=== PATIENT | male | born 1945 ===

== ENCOUNTER 2018-02-22 10:39 | Observation (INO) | payer MEDICARE ==
[~2018-02-22] VITALS: Ht 167.6 cm; Wt 1.0 kg
[2018-02-22] MEDS ORDERED: SODIUM CHLORIDE 0.9% 1,000 ML IV SCH (12:53)
[2018-02-22] MEDS ORDERED: FENTANYL PF 250 MCG/5ML ONE (13:05)
[2018-02-22] MEDS ORDERED: ATOR40TA PO (13:17)
[2018-02-22] MEDS ORDERED: LISI-167 PO (13:17)
[2018-02-22] MEDS ORDERED: APIX5TAB PO (13:17)
[2018-02-22 13:22] LABS: BASOPHILS # (AUTO) 0.03 x10^3/uL (0-0.1); BASOPHILS % (AUTO) 0 % (0-1); EOSINOPHILS # (AUTO) 0.11 x10^3/uL (0-0.4); EOSINOPHILS % (AUTO) 1 % (1-7); LYMPHOCYTES # (AUTO) 2.58 x10^3/uL (1-3.4); LYMPHOCYTES % (AUTO) 31 % (22-44); MD NO; MEAN CORPUSCULAR HEMOGLOBIN 30.7 pg (27.5-34.5); MEAN CORPUSCULAR HGB CONC 33.6 g/dL (33.2-36.2); MEAN CORPUSCULAR VOLUME 91.3 fL (81-97); MEAN PLATELET VOLUME 8.3 fL (7.4-10.4); MONOCYTES # (AUTO) 0.63 x10^3/uL (0.2-0.8); MONOCYTES % (AUTO) 8 % (2-9); NEUTROPHILS # (AUTO) 4.95 x10^3/uL (1.8-6.8); NEUTROPHILS % (AUTO) 60 % (42-75); PLATELET COUNT 234 x10^3/uL (130-400); RED BLOOD COUNT 4.72 x10^6/uL (4.38-5.82); RED CELL DISTRIBUTION WIDTH 13.8 % (9.4-14.8)
[2018-02-22 13:31] LABS: ANION GAP 8 mmol/L (5-15); CALCIUM 8.9 mg/dL (8.5-10.1); CHLORIDE 109 mmol/L (98-107); CREATININE 0.77 mg/dL (0.7-1.3); INTERNATIONAL NORMALIZED RATIO 1.09 (0.93-1.1); PROTHROMBIN TIME 11.5 Seconds (9.6-11.5)
[2018-02-22] MEDS ORDERED: ROCURONIUM 10 MG/ML,10ML ONE (13:42)
[2018-02-22] MEDS ORDERED: ISOPROTERENOL 0.2MG/ML, 5ML ONE (15:28)
[2018-02-22] MEDS ORDERED: DEXAMETHASONE 4 MG/ML, 1ML ONE (17:34)
[2018-02-22] MEDS ORDERED: SUCCINYLCHOLINE 20 MG/ML, 10ML ONE (17:34)
[2018-02-22] MEDS ORDERED: ONDANSETRON 2MG/ML, 2ML ONE (17:34)
[2018-02-22] MEDS ORDERED: PHENYLEPHRINE 10 MG/ML ONE (17:34)
[2018-02-22] MEDS ORDERED: PROPOFOL 10 MG/ML, 20ML ONE (17:35)
[2018-02-22] MEDS ORDERED: FENTANYL PF 100 MCG/2ML ONE ×2 (17:36→18:50)
[2018-02-22] MEDS ORDERED: EPHEDRINE 50 MG/ML, 1ML IVPush PRN (18:30)
[2018-02-22] MEDS ORDERED: ONDANSETRON 2MG/ML, 2ML IV PRN (18:30)
[2018-02-22] MEDS ORDERED: PROMETHAZINE 25 MG/ML, 1ML IV PRN (18:30)
[2018-02-22] MEDS ORDERED: DIPHENHYDRAMINE 50 MG/ML, 1ML IVPush PRN (18:30)
[2018-02-22] MEDS ORDERED: ONDANSETRON ODT 8 MG PO PRN (18:30)
[2018-02-22] MEDS ORDERED: PROMETHAZINE 25 MG SUPP PR PRN (18:30)
[2018-02-22] MEDS ORDERED: OXYcodone 5 MG/5 ML ORAL.SOL UDC PO PRN (18:30)
[2018-02-22] MEDS ORDERED: MIDAZOLAM 1 MG/ML, 2ML IV PRN (18:30)
[2018-02-22] MEDS ORDERED: ACETAMINOPHEN 325 MG TABLET PO PRN ×2 (18:30→21:30)
[2018-02-22] MEDS ORDERED: PROMETHAZINE 12.5 MG SUPP PR PRN (18:30)
[2018-02-22] MEDS ORDERED: MORPHINE SULFATE 4 MG/ML, 1ML IVPush PRN (18:30)
[2018-02-22] MEDS ORDERED: OXYcodone 5 MG/5 ML ORAL.SOL UDC ONE (18:50)
[2018-02-22] MEDS: FENTANYL PF 100 MCG/2ML IV PRN ×2 (18:54→19:22)
[2018-02-22 20:00] VITALS: BP 95/60
[2018-02-22] MEDS: LISINOPRIL 10 MG TABLET PO SCH (21:00)
[2018-02-22] MEDS ORDERED: ONDANSETRON 2MG/ML, 2ML IVPush PRN (21:30)
[2018-02-22] MEDS ORDERED: ACETAMINOPHEN 500 MG TABLET PO PRN (21:30)
[2018-02-22] MEDS: APIXABAN 5 MG TABLET PO SCH (21:53)
[2018-02-23 00:47] VITALS: BP 104/66
[2018-02-23 07:50] VITALS: BP 112/64
[2018-02-23] MEDS ORDERED: LISINOPRIL 10 MG TABLET PO SCH (09:00)
[2018-02-23] MEDS: LISINOPRIL 10 MG TABLET PO SCH (09:18)
[2018-02-23] MEDS: APIXABAN 5 MG TABLET PO SCH (09:18)
== END 2018-02-23 10:41 | disposition home or self-care (01) ==
LOC: CACL 10:39 → 5SO 17:38 → CACL 22:54 → DCLOUNGE 02-23 10:41
PROVIDERS: ADMIT Internal Medicine Cardiovascular Disease; ATTEND Internal Medicine Cardiovascular Disease
DX: I48.92 Unspecified atrial flutter (principal); I10 Essential (primary) hypertension
CPT/HCPCS: 36415; 80048; 85025; 85610; 93312; 93321; 93325; 93613; 93621; 93623; 93653; 93655; 96374; C1730; C1894; G0378; J0330; J1100; J2370; J2405; J2704; J3010